=== PATIENT | male | born 1995 | race Caucasian/White ===

== ENCOUNTER 2017-07-23 15:18 | Inpatient (IN) | payer OTHER ==
[~2017-07-23] VITALS: Ht 147.3 cm; Wt 100.0 kg
[2017-07-23 15:55] LABS: HEMATOCRIT 38.9 % (38.0-50.0); HEMOGLOBIN 13.6 G/DL (12.5-16.6); MCH 29.6 PG (29.0-34.0); MCV 84.7 FL (86-99); PLATELET COUNT 176 K/uL (156-360); RBC DIS.WIDTH-CV 14.3 % (11.8-14.6); RBC DIS.WIDTH-SD 44.1 % (39-53); RED BLOOD COUNT 4.59 M/uL (4.00-5.50); WHITE BLOOD COUNT 8.5 K/uL (4.1-10.2)
[2017-07-23 16:06] LABS: ALBUMIN 4.3 g/dL (3.2-4.8); CHLORIDE 108 mEq/L (99-109); POTASSIUM 4.2 mEq/L (3.7-5.4); SODIUM 143 mEq/L (136-147)
[2017-07-23 16:08] LABS: GLUCOSE 86 mg/dL (70-99); TOTAL PROTEIN 6.9 g/dL (6.4-8.3)
[2017-07-23 16:10] LABS: TOTAL BILIRUBIN 0.3 mg/dL (0.0-1.0)
[2017-07-23 16:11] LABS: SERUM ETHYL ALCOHOL < 10 mg/dL
[2017-07-23 16:12] LABS: ALKALINE PHOSPHATASE 105 IU/L (3-129); CREATININE 0.8 mg/dL (0.6-1.3)
[2017-07-23 16:13] LABS: AST (GOT) 53 IU/L (2-34); UREA NITROGEN (BUN) 7 mg/dL (9-23)
[2017-07-23 16:15] LABS: ALT (GPT) 61 IU/L (3-49); GFR ESTIMATE (CALCULATED) > 59 mL/min/ (58.99-99999)
[2017-07-23 17:55] LABS: APPEARANCE CLEAR ((CLEAR)); BILIRUBIN NEGATIVE; BLOOD NEGATIVE; COLOR YELLOW ((YELLOW)); GLUCOSE (STRIP) NEGATIVE; KETONES NEGATIVE; LEUKOCYTES NEGATIVE; NITRITE NEGATIVE; PROTEIN (STRIP) 30; SPECIFIC GRAVITY 1.026 (1.000-1.030)
[2017-07-23 18:39] LABS: AMPHETAMINE NEGATIVE (500 ng/mL); BARBITURATES NEGATIVE (200 ng/mL); BENZODIAZEPINES PRESUMPTIVE POSITIVE (150 ng/mL); BUPRENORPHINE NEGATIVE (10 ng/mL); COCAINE NEGATIVE (150 ng/mL); METHADONE NEGATIVE (200 ng/mL); METHAMPHETAMINE NEGATIVE (500 ng/mL); OPIATES (MORPHINE) NEGATIVE (100 ng/mL); OXYCODONE NEGATIVE (100 ng/mL); PHENCYCLIDINE NEGATIVE (25 ng/mL); PROPOXYPHENE NEGATIVE (300 ng/mL); THC CANNABINOIDS NEGATIVE (50 ng/mL); TRICYCLIC ANTIDEPRESSANTS NEGATIVE (300 ng/mL)
[2017-07-23] MEDS ORDERED: DEPAKOTE500 MG PO (19:01)
[2017-07-23] MEDS ORDERED: DEPAKOTE250 MG PO (19:01)
[2017-07-23] MEDS ORDERED: SYNTHROID150 MCG PO (19:01)
[2017-07-23] MEDS ORDERED: RISPERDAL4 MG PO (19:02)
[2017-07-23] MEDS ORDERED: CLARITIN10 MG PO (19:02)
[2017-07-23] MEDS ORDERED: RISPERDAL1 MG PO (19:02)
[2017-07-23] MEDS ORDERED: TYLENOL REGULA325 MG PO (19:03)
[2017-07-23] MEDS ORDERED: MIRALAX17 GM PO (19:06)
[2017-07-23] MEDS ORDERED: ALUM-MAG HYDRO360 ML PO (19:06)
[2017-07-23 19:22] LABS: BENZODIAZEPINES, URINE SCREEN POSITIVE (200 ng/mL)
[2017-07-23 20:08] VITALS: BP 140/83
== END 2017-07-24 12:14 | disposition home or self-care (01) | DRG 884 ==
LOC: EME 15:18 → 1WEST 17:57 → EDOF 17:57 → ENRESERV 18:39 → 1WEST 19:55
PROVIDERS: Emergency Medicine
DX: F84.0 Autistic disorder (principal); F71 Moderate intellectual disabilities; F63.89 Other impulse disorders; F91.9 Conduct disorder, unspecified
CPT/HCPCS: 80053; 81003; 84999; 85027; 90837; 99281; 99285; G0480; J1630; J2060